=== PATIENT | female | born 2005 | race Caucasian/White ===

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

== ENCOUNTER 2023-02-24 12:41 | Emergency (ER) | payer OTHER ==
[~2023-02-24] VITALS: Ht 165.1 cm; Wt 52.2 kg
[~2023-02-24 12:41] MED LIST: NAPR-690 PO
[2023-02-24 12:50] VITALS: BP_SYST 126
[2023-02-24 13:18] LABS: BILIRUBIN,URINE NEGATIVE (NEGATIVE); COLOR,URINE YELLOW (YELLOW); GLUCOSE,URINE NEGATIVE (NEGATIVE); KETONES,URINE NEGATIVE (NEGATIVE); LEUKOCYTE ESTERASE ,URINE TRACE (NEGATIVE); NITRITE, URINE NEGATIVE (NEGATIVE); PROTEIN URINE TRACE (NEGATIVE); UROBILINOGEN,URINE 0.2 (0.2-1.0)
[2023-02-24 13:21] LABS: BLOOD, URINE TRACE (NEGATIVE); CLARITY/URINE SLIGHTLY HAZY (CLEAR)
[2023-02-24 13:32] LABS: BACTERIA,URINE RARE /HPF (None Seen); CALCIUM OXALATE CRYSTALS,UR 0-10 /HPF (None Seen)
[2023-02-24 13:46] LABS: EOSINOPHILS % (AUTO) 0.1 % (0.0-4.0); HEMATOCRIT 35.1 % (36-48); HEMOGLOBIN 11.4 g/dL (12.0-16.0); LYMPHOCYTES % (AUTO) 14.6 % (20.5-51.5); MEAN CORPUSCULAR HEMOGLOBIN 25 pg (27-31); MEAN CORPUSCULAR HGB CONC 33 % (32-36); MEAN CORPUSCULAR VOLUME 77 fL (79.0-98.0); MONOCYTES # (AUTO) 0.8 K/uL (0.0-1.0); MONOCYTES % (AUTO) 10.6 % (1.7-9.3); NEUTROPHILS # (AUTO) 5.2 K/uL (1.8-7.7); PLATELET COUNT (AUTO) 223 K/uL (130-430); RED BLOOD CELL COUNT(AUTO) 4.57 MIL/uL (4.2-6.2); RED CELL DISTRIBUTION WIDTH 16.6 % (9.0-15.0); WHITE BLOOD COUNT (AUTO) 7.1 K/uL (4.5-11.0)
[2023-02-24 13:47] LABS: BASOPHILS % (AUTO) 0.4 % (0.0-2.0); NEUTROPHILS % (AUTO) 74.3 % (40.0-70.0)
[2023-02-24 13:48] LABS: BASOPHILS # (AUTO) 0.1 K/uL (0.0-0.2)
[2023-02-24 13:54] LABS: ERYTHROCYTE SEDIMENTATION RATE 47 MM/HR (0-20)
[2023-02-24 13:55] LABS: CREATININE 0.76 mg/dL (0.55-1.30)
[2023-02-24 14:00] LABS: ALBUMIN 3.8 g/dL (3.4-4.8); C-REACTIVE PROTEIN QUANT 9.8 mg/dL (0-0.5); TOTAL BILIRUBIN 0.2 mg/dL (0.0-1.0)
[2023-02-24] MEDS ORDERED: NACL 0.9% 2,000 ML IV ONE (14:30)
[2023-02-24] MEDS ORDERED: KETOROLAC TROMETHAMINE 30 MG VIAL IVP ONE (14:30)
[2023-02-24] MEDS ORDERED: cefTRIAXone 1 GM in D5W 50 ML IV ONE (14:45)
[2023-02-24] MEDS ORDERED: CEPH-548 PO (16:48)
[2023-02-24 16:55] VITALS: BP_SYST 111
== END 2023-02-24 16:55 | disposition home or self-care (01) ==
LOC: SED 12:41
DX: N39.0 Urinary tract infection, site not specified (principal); B34.9 Viral infection, unspecified; R50.9 Fever, unspecified; R51.9 Headache, unspecified; M79.10 Myalgia, unspecified site; J45.909 Unspecified asthma, uncomplicated; Z91.09 Other allergy status, other than to drugs and biological substances; Z79.899 Other long term (current) drug therapy; Z20.822 Contact with and (suspected) exposure to COVID-19
CPT/HCPCS: 99285; 96365; 96375; 87426; 80053; 81000; 85025; 85651; 86140; 87040; 87086; 36415; 81025; 83605; 87804 ×2; J1885